=== PATIENT | male | born 1990 | race Caucasian/White ===

== ENCOUNTER 2017-12-23 21:08 | Emergency (ER) | payer BC ==
[2017-12-23 21:17] VITALS: RESP 16
--- NOTE | 2017-12-23 22:14 | EDPHY ---
H & P Stated Complaint: LLQ PAIN/DIARRHEA Time Seen by Provider: 12/23/17 22:01 HPI/ROS: HPI The patient presents with diarrhea which has been present for the last few days which kept him up at night which was associated with bright red blood in his stool which is now resolved. This is associated with crampy intermittent lower abdominal pain. Patient 1st felt pain a few months ago though it was mild and intermittent and now is becoming more severe and frequent. He has not had a fever with this, no recent travel, no camping. He has no family or personal history of Crohn's disease or ulcerative colitis. REVIEW OF SYSTEMS Constitutional: No fever, no chills. Eyes: No discharge. ENT: No sore throat. Cardiovascular: No chest pain, no palpitations. Respiratory: No cough, no shortness of breath. Gastrointestinal: See HPI Genitourinary: No hematuria. Musculoskeletal: No back pain. Skin: No rashes. Neurological: No headache. PMHx: Healthy PHYSICAL General Appearance: Alert, no distress Eyes: Pupils equal and round no pallor or injection ENT, Mouth: Mucous membranes moist Respiratory: There are no retractions, lungs are clear to auscultation Cardiovascular: Regular rate and rhythm Gastrointestinal: Abdomen is soft, moderate tenderness to palpation in lower quadrants without any mass, rebound or guarding Neurological: A&O, moves all extremities Skin: Warm and dry, no rashes Musculoskeletal: Neck is supple non tender Extremities: symmetrical, full range of motion Psychiatric: Patient is oriented X 3, there is no agitation Source: Patient Exam Limitations: No limitations - Personal History Current Tetanus Diphtheria and Acellular Pertussis (TDAP): Unsure - Medical/Surgical History Hx Asthma: No Hx Chronic Respiratory Disease: No Hx Diabetes: No Hx Cardiac Disease: No Hx Renal Disease: No Hx Cirrhosis: No Hx Alcoholism: No Hx HIV/AIDS: No Hx Splenectomy or Spleen Trauma: No Other PMH: LYME DX, KIDNEY PROBLEM - Social History Smoking Status: Never smoked Constitutional: Initial Vital Signs Temperature (C) 36.9 C 12/23/17 21:14 Heart Rate 85 12/23/17 21:14 Respiratory Rate 16 12/23/17 21:14 Blood Pressure 119/64 12/23/17 21:14 O2 Sat (%) 95 12/23/17 21:14 O2 Delivery Mode Room Air Allergies/Adverse Reactions: No Known Allergies Allergy (Unverified 12/23/17 21:14) Home Medications: Medication Instructions Recorded Dicyclomine [Bentyl 20 MG (*)] 20 mg PO QID #30 tab 12/24/17 Medical Decision Making - Diagnostics Imaging Results: Imaging Impressions Abdomen CT 12/23/17 22:11 Impression: Trace free fluid in the pelvis, fecalization of the distal ileum, and upper limit normal left para-aortic lymph nodes, all of which are nonspecific findings. Dr. Goldsmith discussed these findings by telephone with Sandra Soriano MD on 12/24/2017 0:00. Imaging: Discussed imaging studies w/ fisher scallop Radiologist Differential Diagnosis: 27-year-old healthy male who presents with intermittent abdominal pains and now with frequent diarrhea which is bloody as well as increasing severity of pain. On exam, he is well-appearing though is tenderness in his lower quadrants. Differential diagnosis includes diverticulitis, colitis, appendicitis. In the emergency department, the patient received IV fluids and medication for his pain. Labs were checked and were unremarkable. He had ongoing pain, the CT scan was performed and did demonstrate some slightly enlarged para-aortic lymph nodes, however was for the most part unremarkable. I reexamined him, and after receiving Bentyl he was more comfortable. He felt well enough to go home. I feel he may be suffering from enteritis. Is I will send him home with a prescription for Bentyl and a referral to Gastroenterology. - Data Points Laboratory Results: Laboratory Results 12/23/17 22:45 12/23/17 22:45 12/23/17 12/23/17 22:45 22:45 WBC 7.53 10^3/uL 10^3/uL (3.80-9.50) RBC 5.74 10^6/uL 10^6/uL (4.40-6.38) Hgb 17.6 g/dL H g/dL (13.7-17.5) Hct 49.1 % % (40.0-51.0) MCV 85.5 fL fL (81.5-99.8) MCH 30.7 pg pg (27.9-34.1) MCHC 35.8 g/dL g/dL (32.4-36.7) RDW 11.9 % % (11.5-15.2) Plt Count 187 10^3/uL 10^3/uL (150-400) MPV 11.0 fL fL (8.7-11.7) Neut % (Auto) 47.4 % % (39.3-74.2) Lymph % (Auto) 39.2 % % (15.0-45.0) [place] % (Auto) 8.5 % % (4.5-13.0) Eos % (Auto) 4.2 % % (0.6-7.6) Baso % (Auto) 0.4 % % (0.3-1.7) Nucleat RBC Rel Count 0.0 % % (0.0-0.2) Absolute Neuts (auto) 3.57 10^3/uL 10^3/uL (1.70-6.50) Absolute Lymphs (auto) 2.95 10^3/uL 10^3/uL (1.00-3.00) Absolute Monos (auto) 0.64 10^3/uL 10^3/uL (0.30-0.80) Absolute Eos (auto) 0.32 10^3/uL 10^3/uL (0.03-0.40) Absolute Basos (auto) 0.03 10^3/uL 10^3/uL (0.02-0.10) Absolute Nucleated RBC 0.00 10^3/uL 10^3/uL (0-0.01) Immature Gran % 0.3 % % (0.0-1.1) Immature Gran # 0.02 10^3/uL 10^3/uL (0.00-0.10) Sodium 138 mEq/L mEq/L (135-145) Potassium 4.3 mEq/L mEq/L (3.5-5.2) Chloride 98 mEq/L mEq/L (97-110) Carbon Dioxide 31 mEq/l mEq/l (22-31) Anion Gap 9 mEq/L mEq/L (8-16) BUN 20 mg/dL mg/dL (7-23) Creatinine 1.1 mg/dL mg/dL (0.7-1.3) Estimated GFR > 60 Glucose 95 mg/dL mg/dL (70-100) Calcium 9.8 mg/dL mg/dL (8.5-10.4) Total Bilirubin 0.6 mg/dL mg/dL (0.1-1.4) AST 33 IU/L IU/L (17-59) ALT 37 IU/L IU/L (21-72) Alkaline Phosphatase 76 IU/L IU/L (38-126) Total Protein 7.0 g/dL g/dL (6.3-8.2) Albumin 4.3 g/dL g/dL (3.5-5.0) Medications Given: Discontinued Medications Dicyclomine HCl (Bentyl) 20 mg PO EDNOW ONE Stop: 12/24/17 00:04 Last Admin: 12/24/17 00:09 Dose: 20 mg Hydromorphone HCl (Dilaudid) 1 mg IVP EDNOW ONE Stop: 12/23/17 22:53 Last Admin: 12/23/17 22:58 Dose: 1 mg Ketorolac Tromethamine (Toradol) 15 mg IVP EDNOW ONE Stop: 12/24/17 00:05 Last Admin: 12/24/17 00:09 Dose: 15 mg Metoclopramide HCl (Reglan Injection) 10 mg IVP EDNOW ONE Stop: 12/24/17 00:04 Last Admin: 12/24/17 00:09 Dose: 10 mg Departure - Departure Disposition: Home, Routine, Self-Care Clinical Impression: Abdominal pain Qualifiers: Abdominal location: generalized Qualified Code(s): R10.84 - Generalized abdominal pain Diarrhea Qualifiers: Diarrhea type: unspecified type Qualified Code(s): R19.7 - Diarrhea, unspecified Condition: Good Instructions: Gastroenteritis (ED) Additional Instructions: Please follow-up with the superintendent transmission if your symptoms continue. You should return to the emergency department if you are worse in any way. Referrals: Dylon Booker MD [Medical Doctor] - As per Instructions Prescriptions: Dicyclomine [Bentyl 20 MG (*)] 20 mg PO QID #30 tab
[2017-12-23] MEDS ORDERED: IOPAMIDOL (ISOVUE-300) 100 ML BTL ONE (22:50)
[2017-12-23] MEDS ORDERED: HYDROmorphONE/DILAUDID 1 MG/ML INJ IVP ONE (22:52)
[2017-12-23 22:54] LABS: PLATELET COUNT 187 10^3/uL (150-400)
[2017-12-23] MEDS ORDERED: HYDROmorphONE/DILAUDID 2 MG/ML INJ ONE (22:55)
[2017-12-24] MEDS ORDERED: METOCLOPRAMIDE 10 MG/2 ML VIAL IVP ONE (00:03)
[2017-12-24] MEDS ORDERED: DICYCLOMINE 10 MG CAP PO ONE (00:03)
[2017-12-24] MEDS ORDERED: KETOROLAC 15 MG/1 ML SDV IVP ONE (00:04)
[2017-12-24 01:25] VITALS: BP 103/50; PULSE 80; TEMP 97.5; O2SAT 96
== END 2017-12-24 01:23 | disposition home or self-care (01) ==
DX: R10.84 Generalized abdominal pain (principal); R19.7 Diarrhea, unspecified
CPT/HCPCS: 96374; J1170; J1885; J2765; Q9967

== ENCOUNTER 2019-01-11 09:47 | Emergency (ER) | payer BC, MEDICAID ==
[2019-01-11] MEDS ORDERED: NS 1,000 ML IV ONE (10:11)
--- NOTE | 2019-01-11 10:25 | EDPHY ---
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 Patient is afebrile and not toxic appearing, he is in no acute distress on arrival. HSNE intact with no significant red flags. Laboratory studies reassuring, no evidence of infectious process, metabolic abnormality, MALACHI or rhabdomyolysis. Patient had extended episodes of vomiting after cocaine use, I suspect his lumbar back pain is secondary to prolonged vomiting and is musculoskeletal in nature. There were no findings to suggest fracture, epidural abscess/hematoma, epidural compression syndrome, cauda equina syndrome, UTI, pyelonephritis or renal/ ureteral stone. He was very reassured by his findings, will follow up with PCP. Return precautions discussed. DIFFERENTIAL DX: Back pain including but not limited to muscular pain, herniated disc, spine fracture, intra-abdominal causes, renal colic, renal failure, pyelonephritis and urinary tract infection. ED COURSE: 1156: Case and plan of care discussed with Dr. Salmeron. 1206: On repeat examination the patient reports that he is feeling better. He was very reassured by his findings. He will follow up with primary care. His neurological exam remained grossly normal with no focal deficit. CHIEF COMPLAINT: Lumbar back pain HPI: Patient is a 28-year-old male with a history of remote ATN secondary to cocaine and Adderall use who presents to the emergency department with lumbar back pain and concerns that he might have ATN again. Patient reports he has been clean for the last year, no illicit drug use up until Friday evening where he used a large amount of cocaine. Patient reports on Friday morning he had multiple episodes of emesis and subsequently started to experience some lumbar back pain. He is not recall if this is similar to when he had his pain after ATN diagnosis. Patient describes it as bilateral, achy in nature. He denies any direct impact or trauma. He denies any midline pain. He has had no fever, denies any IV drug use. No recent spinal procedures. He denies any chest pain , shortness of breath, persistent nausea or vomiting. He has had no abdominal pain. He denies any testicular pain or swelling. He denies any muscle pain or weakness. He denies any urinary symptoms to include dysuria, dark colored urine , hematuria or increased frequency. Patient with loose stool yesterday, no melena or hematochezia. Patient denies saddle paresthesias, lower extremity numbness, tingling, major motor weakness, urinary retention or bowel/bladder incontinence. PMH: ATN Pertinent Past Surgical History: Denies Family History: Not contributory Social History: No cigarette smoking, occasional cocaine use, occasional alcohol REVIEW OF SYSTEMS: All other systems negative Constitutional: No fever, no chills, appetite change. Eyes: No discharge, vision change ENT: No sore throat, congestion, ear pain. Cardiovascular: No chest pain, no palpitations. Respiratory: No cough, no shortness of breath. Gastrointestinal: No abdominal pain, no vomiting, diarrhea. Genitourinary: No hematuria, dysuria, flank pain. Musculoskeletal: Lumbar back pain. Skin: No rashes, color change. Neurological: No headache, dizziness, weakness. PHYSICAL EXAM: General Appearance: Well-appearing, no acute distress and not toxic-appearing. HENT: Normocephalic, atraumatic. Bilateral external ears are normal. Bilateral tympanic membranes are normal with pearly babb reflex. Nares are clear, mucosa is pink. Oropharynx is clear, uvula is midline. There is no tonsillar enlargement or exudate. The dentition is normal. Eyes: PERRLA, no acute vision change, nystagmus, swelling, discharge, pain or photosensitivity. Conjunctiva pink, no pallor or injection Neck: Supple, nontender, no lymphadenopathy, no midline pain, FROM, no meningismus. Back: No step-off, palpable bony abnormality, edema, erythema or ecchymosis of the cervical, thoracic or lumbar spines. Bilateral lumbar paraspinal muscles, no midline lumbar spinal tenderness. Full range of motion of all spines. 5/5 and equal strength of the UEs and LEs bilaterally including shoulder shrug. Pulses: 2+ and equal radial, DP and PT pulses bilaterally. Sensation intact and symmetric to light touch from face, UEs and LEs bilaterally. Straight leg raise negative bilaterally. Low/medium concern for Acute Spinal Emergency (ASE) High Sensitivity Neuro Exam (HSNE) L1: inner thigh sensation- no deficit L2: ADduct thigh (cross legs) - no deficit L3: Extend knee- no deficit L4: Ankle dorsiflexion- no deficit L5: Great toe extension- no deficit S1: Flex knee- no deficit S3-4: bladder/bowel function- no deficit HSNE - No deficit Red flags: MINOR (1 pt each) Alcohol abuse - 0 DM - 0 Renal failure - 0 Night pain- 0 3rd visit in <= 20 days - no MAJOR (3 pts each) IVDA- 0 Fever without focus - 0 Recent/current systemic infection - 0 Immunosuppression (physician discretion) - 0 Recent spinal fracture/spinal procedure - 0 New bladder/bowel incontinence or retention - 0 Total Red Flag score- 0 Total Red Flag score <= 3 AND neuro exam is at baseline ---> no MRI is recommended Respiratory: There are no retractions, lungs are clear to auscultation. Cardiac: Regular rate and rhythm, no murmurs or gallops. Gastrointestinal: Abdomen is soft, nontender, bowel sounds normal, no masses/ hernia, no rigidity, guarding or focal peritoneal findings. Neurological: Alert and oriented x 3, CN 2-12 grossly intact, normal sensation and strength Skin: Warm, dry, no rashes, no nodules on palpation. Musculoskeletal: Extremities are symmetrical, full range of motion, no tenderness, deformity, swelling, or erythema. Psychiatric: Mood and affect are normal, there is no agitation. MEDICAL DECISION MAKING: Patient was seen independently. Secondary supervising physician at time of evaluation was Dr. Salmeron. Diagnosis: Lumbar back pain. 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 Patient is afebrile and not toxic appearing, he is in no acute distress on arrival. HSNE intact with no significant red flags. Laboratory studies reassuring, no evidence of MALACHI or rhabdomyolysis. Patient had extended episodes of vomiting after cocaine use, I suspect his lumbar back pain is secondary to prolonged vomiting and is musculoskeletal in nature. He had no saddle paresthesias, lower extremity numbness, tingling, major motor weakness, urinary retention or bowel/bladder incontinence. No indication for emergent MRI. There were no clinical findings to suggest vertebral osteomyelitis, acute fracture, cauda equina syndrome, epidural abscess/hematoma, epidural compression syndrome, renal colic, AAA, dissection, pyelonephritis, meningitis, malignancy, transverse myelitis, herpes zoster, or additional emergent intraabdominal infectious/obstructive process. Patient was given single dose of Tylenol, Toradol and a lidoderm patch was placed while in the ED with improvement of his pain. PCP referral provided, return precautions discussed. Clinical lab tests: ordered / reviewed. Independent visualization of images, tracing, or specimens: Not applicable. Decision to obtain medical records or history from someone other than the patient: No Review / Summarize previous medical records: Yes Discussed patient with another provider: Yes, Dr. Salmeron Patient Progress: Stable, discharged. - History Smoking Status: Never smoked - Objective Vital Signs: Initial Vital Signs Temperature (C) 36.9 C 01/11/19 09:50 Heart Rate 76 01/11/19 09:50 Respiratory Rate 18 01/11/19 09:50 Blood Pressure 120/61 01/11/19 09:50 O2 Sat (%) 99 01/11/19 09:50 O2 Delivery Mode Room Air Allergies/Adverse Reactions: No Known Allergies Allergy (Verified 01/11/19 09:50) Home Medications: Medication Instructions Recorded NK [No Known Home Meds] 01/11/19 Laboratory Results: Laboratory Results 01/11/19 10:15 01/11/19 01/11/19 01/11/19 11:18 10:22 10:15 WBC RBC Hgb POC Hgb 15.6 gm/dL gm/dL (13.7-17.5) Hct POC Hct 46 % % (40-51) MCV MCH MCHC RDW Plt Count MPV Neut % (Auto) Lymph % (Auto) [place] % (Auto) Eos % (Auto) Baso % (Auto) Nucleat RBC Rel Count Absolute Neuts (auto) Absolute Lymphs (auto) Absolute Monos (auto) Absolute Eos (auto) Absolute Basos (auto) Absolute Nucleated RBC Immature Gran % Immature Gran # POC Sodium 138 mEq/L mEq/L (135-145) POC Potassium 3.3 mEq/L mEq/L (3.3-5.0) POC Chloride 95 mEq/L L mEq/L (97-110) POC Total CO2 29 mEq/L mEq/L (22-31) POC BUN 15 mg/dL mg/dL (7-23) POC Creatinine 1.2 mg/dL mg/dL (0.7-1.3) POC Glucose 120 mg/dL H mg/dL (70-100) Creatine Kinase 187 IU/L IU/L (0-224) Urine Color PALE YELLOW Urine Appearance CLEAR Urine pH 7.0 (5.0-7.5) Ur Specific [place] 1.005 (1.002-1.030) Urine Protein NEGATIVE (NEGATIVE) Urine Ketones TRACE H (NEGATIVE) Urine Blood NEGATIVE (NEGATIVE) Urine Nitrate NEGATIVE (NEGATIVE) Urine Bilirubin NEGATIVE (NEGATIVE) Urine Urobilinogen NEGATIVE EU EU (0.2-1.0) Ur Leukocyte Esterase NEGATIVE (NEGATIVE) Urine Glucose NEGATIVE (NEGATIVE) 01/11/19 10:15 WBC 4.70 10^3/uL 10^3/uL (3.80-9.50) RBC 5.26 10^6/uL 10^6/uL (4.40-6.38) Hgb 15.9 g/dL g/dL (13.7-17.5) POC Hgb Hct 45.9 % % (40.0-51.0) POC Hct MCV 87.3 fL fL (81.5-99.8) MCH 30.2 pg pg (27.9-34.1) MCHC 34.6 g/dL g/dL (32.4-36.7) RDW 12.5 % % (11.5-15.2) Plt Count 119 10^3/uL L 10^3/uL (150-400) MPV 11.7 fL fL (8.7-11.7) Neut % (Auto) 70.2 % % (39.3-74.2) Lymph % (Auto) 16.6 % % (15.0-45.0) [place] % (Auto) 11.7 % % (4.5-13.0) Eos % (Auto) 0.9 % % (0.6-7.6) Baso % (Auto) 0.2 % L % (0.3-1.7) Nucleat RBC Rel Count 0.0 % % (0.0-0.2) Absolute Neuts (auto) 3.30 10^3/uL 10^3/uL (1.70-6.50) Absolute Lymphs (auto) 0.78 10^3/uL L 10^3/uL (1.00-3.00) Absolute Monos (auto) 0.55 10^3/uL 10^3/uL (0.30-0.80) Absolute Eos (auto) 0.04 10^3/uL 10^3/uL (0.03-0.40) Absolute Basos (auto) 0.01 10^3/uL L 10^3/uL (0.02-0.10) Absolute Nucleated RBC 0.00 10^3/uL 10^3/uL (0-0.01) Immature Gran % 0.4 % % (0.0-1.1) Immature Gran # 0.02 10^3/uL 10^3/uL (0.00-0.10) POC Sodium POC Potassium POC Chloride POC Total CO2 POC BUN POC Creatinine POC Glucose Creatine Kinase Urine Color Urine Appearance Urine pH Ur Specific [place] Urine Protein Urine Ketones Urine Blood Urine Nitrate Urine Bilirubin Urine Urobilinogen Ur Leukocyte Esterase Urine Glucose Medications Given: Discontinued Medications Acetaminophen (Tylenol) 650 mg PO EDNOW ONE Stop: 01/11/19 10:44 Last Admin: 01/11/19 11:20 Dose: 650 mg Sodium Chloride (Ns) 1,000 mls @ 0 mls/hr IV ONCE ONE PRN Reason: Wide Open Stop: 01/11/19 10:12 Last Admin: 01/11/19 10:11 Dose: 1,000 mls Ketorolac Tromethamine (Toradol) 15 mg IVP EDNOW ONE Stop: 01/11/19 11:42 Last Admin: 01/11/19 11:54 Dose: 15 mg Miscellaneous Medication (Icy Hot Lidocaine/Menthol 4%/1% Patch) 1 patch TD EDNOW ONE Stop: 01/11/19 10:44 Last Admin: 01/11/19 11:21 Dose: 1 patch Point of Care Test Results: Chemistry 01/11/19 10:22 POC Sodium 138 mEq/L mEq/L (135-145) POC Potassium 3.3 mEq/L mEq/L (3.3-5.0) POC Chloride 95 mEq/L L mEq/L (97-110) POC Total CO2 29 mEq/L mEq/L (22-31) POC BUN 15 mg/dL mg/dL (7-23) POC Creatinine 1.2 mg/dL mg/dL (0.7-1.3) POC Glucose 120 mg/dL H mg/dL (70-100) ISTAT H&H 01/11/19 10:22 POC Hgb 15.6 gm/dL gm/dL (13.7-17.5) POC Hct 46 % % (40-51) Departure - Departure Disposition: Home, Routine, Self-Care Clinical Impression: Lumbar back pain Condition: Good Instructions: Back Pain (ED) Additional Instructions: DISCHARGE INSTRUCTIONS FROM YOUR PROVIDER Thank you for visiting our emergency department today. Please keep in mind that discharge from the emergency department does not mean that there is nothing wrong - it simply means that we have not identified an emergency condition that requires further evaluation or treatment in the hospital. You should always plan to follow up with primary care for re-evaluation of your condition in the next 2-3 days. Most back pain improves quickly with rest and anti-inflammatory medicines. The majority of back pain will improve regardless of treatment within 4-6 weeks. Regardless, I recommend you follow up with primary care for recheck as soon as possible. Additional evaluation as an outpatient may be needed, and further therapeutic modalities such as chiropractic or PT may be helpful. Rest. Avoid lifting greater than 10-15 pounds. Avoid twisting or prolonged sitting. Movement and gentle walking is good for your back. Try to walk for 15-10 minutes on an even surface 3 or 4 times a day as tolerated and increase gentle exercise as your back improves. Apply ice to your low back during acute pain phase, later a heating pad set to a low setting or hot tub may be helpful to help relax muscles. Ibuprofen 600 mg every 6-8 hours with food. Stop for stomach upset. Do not exceed 2400 mg in 24 hours. Avoid these medications for the next 8 hours as you received Toradol today in the ED. Tylenol 500-1000 mg every 6-8 hours with food. Do not exceed 4000 mg in a 24 hr period. Salonpas pain patch, you may purchase this [id number] at a grocery store pharmacy. Follow the instructions on the packaging. Schedule a follow-up appointment with your primary care physician in the next 2- 3 days for re-evaluation. You may require further treatment, physical therapy and/or further future testing. Return for increased or unmanageable pain, new injury, new midline back pain, numbness, tingling, weakness of your legs, loss of bowel or bladder control, inability to urinate, burning or pain with urination, blood in the urine, fever , chills, abdominal pain, vomiting, difficulty walking, dizziness, fainting, chest pain, shortness of breath, neck pain, neck stiffness, other site of back pain, calf pain, leg redness or swelling, or for any other new, worsening or worrisome symptoms. People present with illnesses and injuries in different ways, and it is always possible that we have missed something. Again, thank you for choosing our emergency department. We hope that you feel better. Referrals: Frankie Shah MD [Medical Doctor] - 1-2 days without fail (Establish care with a primary care provider)
[2019-01-11] MEDS ORDERED: LIDOCAINE 4%/MENTHOL 1% PATCH TD ONE (10:43)
[2019-01-11] MEDS ORDERED: ACETAMINOPHEN 325 MG TAB PO ONE (10:43)
[2019-01-11 11:00] LABS: CREATINE KINASE 187 IU/L (0-224)
[2019-01-11 11:11] LABS: PLATELET COUNT 119 10^3/uL (150-400)
[2019-01-11] MEDS ORDERED: KETOROLAC 15 MG/1 ML SDV IVP ONE (11:41)
[2019-01-11 11:58] VITALS: BP 123/65
[2019-01-11] MEDS ORDERED: PATCH REMOVAL 1 EA PATCH TD SCH (21:00)
== END 2019-01-11 12:07 | disposition home or self-care (01) ==
DX: M54.5 Low back pain (principal)
CPT/HCPCS: 82435-PO; 82565-PO; 82947-PO; 84132-PO; 84295-PO; 84520-PO; 85014-ER; 96374; J1885